=== PATIENT | male | born 1955 | race Caucasian/White ===

== ENCOUNTER 2020-06-27 16:40 | Outpatient (CLI) | payer OTHER, MEDICARE, SELFPAY ==
--- NOTE | ~2020-06-27 | XR_ITS ---
EXAMINATION: XR knee LT 3V DATE: 06/27/2020 17:11 INDICATION: Chronic left knee pain. TECHNIQUE: 4 views of left knee were obtained. COMPARISON: None. FINDINGS: There is varus angulation at the knee. No fracture. There is severe osteoarthritis of media l and patellofemoral compartments and mild osteoarthritis of lateral compartment. There is chondrocal cinosis of lateral meniscus. There is a moderate-sized knee joint effusion with loose bodies. IMPRESSION: 1. Severe left knee osteoarthritis. 2. Moderate-sized left knee joint effusion with loose bodies. Reviewed, dictated and finalized at location A. DULE HANGER
[2020-06-27 17:28] LABS: Basophils Absolute Auto 0.1 K/mm3 (0.0-0.1); Basophils Percent Auto 0.6 % (0.2-1.2); Eosinophils Absolute Auto 0.4 K/mm3 (0-0.3); Eosinophils Percent Auto 5.3 % (0-4.4); Hematocrit 43.6 % (42.0-52.0); Hemoglobin 14.8 g/dL (14.0-18.0); Immature Granulocyte Absolute 0.02 K/mm3 (0.00-0.031); Immature Granulocyte Percent A 0.2 % (0-0.5); Lymphocytes Absolute Auto 2.86 K/mm3 (0.9-3.2); Lymphocytes Percent Auto 34.5 % (18.3-44.2); Mean Corpuscular HGB Conc 33.9 g/dl (32-36); Mean Corpuscular Hemoglobin 31.3 pg (26-34); Mean Corpuscular Volume 92.2 fl (80-100); Mean Platelet Volume 9.8 fl (7.4-10.4); Monocytes Absolute Auto 0.6 K/mm3 (0.1-0.6); Monocytes Percent Auto 6.9 % (2.6-8.5); Neutrophils Absolute Auto 4.4 K/mm3 (1.3-6.7); Neutrophils Percent Auto 52.5 % (45.5-73.1); Platelet Count Result 225 k/mm3 (150-375); Red Blood Count 4.73 M/mm3 (4.6-6.20); Red Cell Distribution Width 12.2 % (11.5-14.5); White Blood Count 8.3 K/mm3 (4.5-10.0)
[2020-06-27 17:31] LABS: Add Urine Microscopic? NO; Appearance Urine Clear (Clear); Bilirubin Urine Negative (Negative); Blood Urine Negative (Negative); Color Urine Straw (Yellow); Glucose Urine UA Negative (Negative); Ketones Urine Negative (Negative); Leukocyte Esterase Ur Negative LEU/UL (NEGATIVE); Nitrate Urine Negative (Negative); Protein Urine Negative (Negative); Specific Grav Ur 1.013 (1.001-1.035); Urobilinogen Urine Negative mg/dL (<2.0)
[2020-06-27 17:41] LABS: Alanine Aminotransferase 50 U/L (4-50); Albumin Level 4.6 g/dL (3.5-5.1); Alkaline Phosphatase 45 U/L (38-126); Anion Gap 7 mmol/L (8-16); Aspartate Amino Transferase 34 U/L (17-59); Bilirubin,Total 0.4 mg/dL (0.2-1.3); Blood Urea Nitrogen 23 mg/dL (9-20); Calcium 9.4 mg/dL (8.4-10.2); Carbon Dioxide 30 mmol/L (22-30); Chloride 104 mmol/L (98-107); Cholesterol 177 mg/dL (0-200); Estimated Glomerular Filt Rate > 60; Glucose 104 mg/dL (75-110); HDL Direct 49 mg/dL; Potassium 4.4 mmol/L (3.4-5.0); Sodium 141 mmol/L (137-145); Triglycerides 132 mg/dL (<150)
[2020-06-27 17:47] LABS: Hemoglobin A1C 5.4 % (<5.7)
[2020-06-27 17:52] LABS: LDL Cholesterol Direct 103 mg/dL
== END 2020-06-27 16:41 | disposition home or self-care (01) ==
LOC: ANHIMG 16:47
PROVIDERS: PCP Family Medicine; Visit Provider Nurse Practitioner Family
DX: R73.01 Impaired fasting glucose (principal); E78.2 Mixed hyperlipidemia; E78.00 Pure hypercholesterolemia, unspecified; Z00.00 Encounter for general adult medical examination without abnormal findings; M25.562 Pain in left knee; M17.12 Unilateral primary osteoarthritis, left knee; M25.462 Effusion, left knee; M23.42 Loose body in knee, left knee
CPT/HCPCS: 36415; 73562; 80053; 80061; 81003; 83036; 84443; 85025

== ENCOUNTER → 2021-01-12 01:39 | Outpatient (CLI) | payer OTHER, MEDICARE, SELFPAY ==
[2021-01-12 19:39] LABS: SARS-CoV-2 RNA PCR Positive
== END ==
PROVIDERS: PCP Family Medicine; Visit Provider Family Medicine
DX: U07.1 COVID-19 (principal)
CPT/HCPCS: C9803; U0003; U0005

== ENCOUNTER 2021-01-25 09:54 | Outpatient (CLI) | payer OTHER, MEDICARE, SELFPAY ==
--- NOTE | ~2021-01-25 | XR_ITS ---
EXAMINATION: XR chest 2V EXAM DATE: 01/25/2021 10:14 INDICATION: R06.02 - Shortness of breath, recent COVID. TECHNIQUE: Frontal and lateral projections of the chest obtained and reviewed. There is no prior anita dy for comparison. FINDINGS: The lungs are clear. There are no pleural effusions. The cardiomediastinal silhouette is within normal limits. There is no pneumothorax suspected. The bones and soft tissues are unremarkab le. IMPRESSION: No acute cardiopulmonary findings. Reviewed, dictated and finalized at location A.
== END 2021-01-25 09:55 | disposition home or self-care (01) ==
PROVIDERS: PCP Family Medicine; Visit Provider Family Medicine
DX: R06.02 Shortness of breath (principal); B94.8 Sequelae of other specified infectious and parasitic diseases
CPT/HCPCS: 71046

== ENCOUNTER 2022-05-21 08:06 | Outpatient (CLI) | payer OTHER, MEDICARE, SELFPAY ==
--- NOTE | 2022-05-22 14:47 | WPDPFTINT ---
PFT Procedure Performed PFT Procedure Performed Spirometry with Pre/Post Bronchodilator Plethysmography (Lung Vol) Diffusing Cap (DLCO) Flow Vol Loop PFT Interpretation Lung volumes were measured with the body plethysmography method. The diminished expiratory reserve volume is related to obesity. The remaining lung volumes are unremarkable. Spirometry showed diminished expiratory flow rates and a diminished FEV1 to FVC ratio 61%, indicative of a obstructive airway disease. Following administration of a bronchodilator there was significant increase in expiratory flow rates. The flow volume loop is consistent with obstructive airway disease. Impression: Mild obstructive airway disease with significant response to bronchodilators on this testing. Lung diffusion capacity within the normal range.
== END 2022-05-21 08:07 | disposition home or self-care (01) ==
LOC: ANHPFT 08:07
PROVIDERS: PCP Family Medicine; Visit Provider Physician Assistant
DX: J44.9 Chronic obstructive pulmonary disease, unspecified (principal); R06.02 Shortness of breath
CPT/HCPCS: 94060; 94726; 94729

== ENCOUNTER 2022-11-21 16:35 | Outpatient (CLI) | payer OTHER, MEDICARE, SELFPAY ==
[2022-11-21 17:20] LABS: Basophils Absolute Auto 0.1 K/mm3 (0.0-0.1); Basophils Percent Auto 0.9 % (0.2-1.2); Eosinophils Absolute Auto 0.4 K/mm3 (0-0.3); Eosinophils Percent Auto 6.9 % (0-4.4); Hematocrit 40.9 % (42.0-52.0); Hemoglobin 13.8 g/dL (14.0-18.0); Immature Granulocyte Absolute 0.02 K/mm3 (0.00-0.031); Immature Granulocyte Percent A 0.3 % (0-0.5); Lymphocytes Absolute Auto 1.57 K/mm3 (0.9-3.2); Lymphocytes Percent Auto 27.1 % (18.3-44.2); Mean Corpuscular HGB Conc 33.7 g/dl (32-36); Mean Corpuscular Volume 91.9 fl (80-100); Mean Platelet Volume 9.9 fl (7.4-10.4); Monocytes Absolute Auto 0.5 K/mm3 (0.1-0.6); Neutrophils Absolute Auto 3.2 K/mm3 (1.3-6.7); Neutrophils Percent Auto 55.8 % (45.5-73.1); Platelet Count Result 220 k/mm3 (150-375); Red Blood Count 4.45 M/mm3 (4.6-6.20); Red Cell Distribution Width 12.3 % (11.5-14.5); White Blood Count 5.8 K/mm3 (4.5-10.0)
[2022-11-21 17:40] LABS: Alanine Aminotransferase 83 U/L (6-50); Albumin Level 4.4 g/dL (3.5-5.1); Alkaline Phosphatase 46 U/L (38-126); Anion Gap 9 mmol/L (8-16); Aspartate Amino Transferase 42 U/L (17-59); Bilirubin,Total 0.5 mg/dL (0.2-1.3); Blood Urea Nitrogen 29 mg/dL (9-20); Calcium 9.4 mg/dL (8.4-10.2); Carbon Dioxide 28 mmol/L (22-30); Chloride 103 mmol/L (98-107); Estimated Glomerular Filt Rate 60; Glucose 111 mg/dL (65-110); Potassium 4.4 mmol/L (3.4-5.0); Sodium 140 mmol/L (137-145)
== END 2022-11-21 16:36 | disposition home or self-care (01) ==
LOC: ANHLAB 16:37
PROVIDERS: PCP Family Medicine; Visit Provider Physician Assistant
DX: K92.1 Melena (principal); R10.9 Unspecified abdominal pain
CPT/HCPCS: 36415; 80053; 85025

== ENCOUNTER 2022-12-20 01:20 | Day surgery (SDC) | payer OTHER, MEDICARE, SELFPAY ==
[2022-12-09 09:36] VITALS: BMI 31.6
--- NOTE | 2022-12-19 15:23 | PM.HPGS ---
History of Present Illness History of Present Illness Consent: Risks, benefits, and alternatives have been discussed and questions answered. Patient agrees to proceed with procedure. Chief complaint: Personal hx of other diseases of the digestive sys Narrative: Jamar Rogers is a 67 year old male referred for Investigation of rectal bleeding. For a period of 12 consecutive days he was seen blood in his stools every day. He has not had abdominal pain or rectal pain. He denies constipation or straining. Review of Systems Review of Systems: All systems reviewed & are unremarkable except as noted in HPI and below PMFSH Surgical History Surgical History S/P prostatectomy Status post left knee replacement Family History Family History Mother Family history of diabetes mellitus in first degree relative Father Family history of lymphoma Other Diabetes mellitus Social History Social History Smoking status: Never smoker Second hand tobacco smoke exposure: No Alcohol intake: current Drinks per week: 5 Substance use: never Substance use type: does not use Living arrangements: with family Occupation/Education: occupation Gender identity (if verbalized by the patient): Male Sexual Orientation (if Verbalized by the Patient): Straight or Heterosexual Spiritual care concerns: No Meds Home Medications and Allergies Home Medications Medication Instructions Recorded Confirmed Type atorvastatin 40 mg tablet See Rx Instructions .Route 09/24/21 12/09/22 Rx .COMPLEX #180 tabs umeclidinium 62.5 mcg-vilanterol See Rx Instructions .Route 07/22/22 12/09/22 Rx 25 mcg/actuation powdr for .COMPLEX #60 ea inhalation (Anoro Ellipta) albuterol sulfate 90 mcg/actuation 1 puff inhalation Q6H PRN 10/28/22 12/09/22 Rx aerosol inhaler shortness of breath or wheezing #8.5 grams diclofenac sodium 50 mg See Rx Instructions .Route 11/18/22 12/09/22 Rx tablet,delayed release .COMPLEX #60 tabs zolpidem 10 mg tablet 10 mg PO .qhs insomnia #30 tabs 12/02/22 12/09/22 Rx Allergies Allergy/AdvReac Type Severity Reaction Status Date / Time No Known Allergies Allergy Verified 12/20/22 08:34 Exam Const: General: alert Orientation/consciousness: patient oriented x3 Resp: Auscultation: clear to auscultation bilaterally Cardio: Rhythm: regular rhythm GI: GI Palp: Yes Soft to palpation and No Tenderness to palpation present (GI) Neuro: General: patient oriented x3 Assessment and Plan Assessment and plan (1) Rectal bleeding: Code(s): K62.5 - Hemorrhage of anus and rectum Status: Acute Assessment and Plan: Colonoscopy with possible biopsy or polypectomy or cautery or injection of substances.
[2022-12-20 08:35] VITALS: BP 129/99; PULSE 70; RESP 20; TEMP 36.2; O2SAT 97
[2022-12-20] MEDS: LACTATED RINGERS 1,000 ML 150 ML IV CONT (08:44)
--- NOTE | 2022-12-20 09:01 | P.PNAN_ITS ---
Anes - Initial Pre Proc Eval Procedure: Operation Date: 12/20/22 09:30 Proposed Procedures p Colonoscopy - Carlos Robles MD Date/Time: 12/20/22 09:01 Surgeon: Carlos Robles MD Pre Op Diagnosis: Personal hx of other diseases of the digestive sys Patient Data Age: 67 Gender: M Height: 1.85 m Weight: 104.8 kg Last Vital Signs Temp 36.2 C L 12/20/22 08:35 Pulse 70 12/20/22 08:35 Resp 20 12/20/22 08:35 BP 129/99 H 12/20/22 08:35 Pulse Ox 97 12/20/22 08:35 O2 Del Method Room Air 12/20/22 08:35 Allergies Allergy/AdvReac Type Severity Reaction Status Date / Time No Known Allergies Allergy Verified 12/20/22 08:34 Home Medications Medication Instructions Recorded Confirmed Type atorvastatin 40 mg tablet See Rx Instructions .Route 09/24/21 12/09/22 Rx .COMPLEX #180 tabs umeclidinium 62.5 mcg-vilanterol See Rx Instructions .Route 07/22/22 12/09/22 Rx 25 mcg/actuation powdr for .COMPLEX #60 ea inhalation (Anoro Ellipta) albuterol sulfate 90 mcg/actuation 1 puff inhalation Q6H PRN 10/28/22 12/09/22 Rx aerosol inhaler shortness of breath or wheezing #8.5 grams diclofenac sodium 50 mg See Rx Instructions .Route 11/18/22 12/09/22 Rx tablet,delayed release .COMPLEX #60 tabs zolpidem 10 mg tablet 10 mg PO .qhs insomnia #30 tabs 12/02/22 12/09/22 Rx Patient hx anesthesia problems: none Family hx anesthesia problems: none Results Review: All pre-operative results and documents have been reviewed as part of the pre- operative evaluation. [facility] Surgical History Surgical History S/P prostatectomy Status post left knee replacement Family History Family History Mother Family history of diabetes mellitus in first degree relative Father Family history of lymphoma Other Diabetes mellitus Social History Social History Smoking status: Never smoker Second hand tobacco smoke exposure: No Alcohol intake: current Drinks per week: 5 Substance use: never Substance use type: does not use Living arrangements: with family Occupation/Education: occupation Gender identity (if verbalized by the patient): Male Sexual Orientation (if Verbalized by the Patient): Straight or Heterosexual Spiritual care concerns: No Anes - Eval Final PreProcedure Day of Procedure 12/20/22 09:01 Patient weight: obese Heart: regular rate and rhythm Lungs: clear to auscultation Airway: Mallampati scale class II Neurological: alert and oriented Last oral intake: >/= 8 hours ASA classification: III Emergent: no Anesthetic plan: proceed Anesthesia type and monitoring: general GIVS and standard monitoring Results Review: All pre-operative results and documents have been reviewed as part of the pre- operative evaluation. Informed Consent: The patient's anesthetic plan and its attendant risks and benefits were discussed with the patient/family/POA. Questions were solicited and answers provided to the satisfaction of the patient/family/POA.
[2022-12-20 09:37] VITALS: BP 110/77; PULSE 63; RESP 17; O2SAT 95
[2022-12-20 09:47] VITALS: BP 118/78; PULSE 63; RESP 23; O2SAT 97
[2022-12-20 09:57] VITALS: BP 114/74; PULSE 68; RESP 18; O2SAT 97
== END 2022-12-20 10:03 | disposition home or self-care (01) ==
PROVIDERS: PCP Family Medicine; Visit Provider Internal Medicine Gastroenterology
PROC: 0DJD8ZZ Inspection of Lower Intestinal Tract, Via Natural or Artificial Opening Endoscopic (ICD-10-PCS; CPT 45378; principal; 2022-12-20 09:30)
DX: K62.5 Hemorrhage of anus and rectum (principal); K57.30 Diverticulosis of large intestine without perforation or abscess without bleeding; K64.8 Other hemorrhoids; Z79.51 Long term (current) use of inhaled steroids; Z87.19 Personal history of other diseases of the digestive system; E66.9 Obesity, unspecified; Z68.30 Body mass index [BMI] 30.0-30.9, adult
CPT/HCPCS: 45378; J2704; J7120

== ENCOUNTER 2023-03-27 15:18 | Outpatient (CLI) | payer OTHER, MEDICARE, SELFPAY ==
--- NOTE | ~2023-03-27 | CT_ITS ---
EXAMINATION: CT abdomen pelvis w con DATE: 03/27/2023 15:53 INDICATION: Left lower quadrant abdominal pain. TECHNIQUE: Computed tomography (CT) of the abdomen and pelvis was performed with 100 mL Omnipaque 350 intravenous contrast. Automated exposure control and iterative reconstruction technique were employe d. The dose-length product was 1110.62 mGy-cm. COMPARISON: None. FINDINGS: The visualized portions of the lung bases demonstrate mild atelectasis. No pleural effusion . The heart size is normal. There are coronary artery calcifications. No pericardial effusion. The li gustavo, gallbladder, spleen, pancreas, and adrenal glands are normal. There are cysts in the kidneys manjit suring up to 4.5 cm on the right. Aortic atherosclerosis is noted. There is diverticulosis of the col on without evidence of diverticulitis. The appendix is normal. There is fat stranding on the left, la teral to the bladder. There are no pathologically enlarged lymph nodes. There is no free intraperiton eal fluid. There is a supraumbilical ventral hernia containing fat. There is moderate thoracic spondy losis and severe lumbar spondylosis. IMPRESSION: 1. Fat stranding in left pelvis, likely inflammation and fat necrosis. Reviewed, dictated and finalized at location A. FLOOR REFINISHER
[2023-03-27 15:48] LABS: Estimated Glomerular Filt Rate 50
== END 2023-03-27 15:19 | disposition home or self-care (01) ==
LOC: ANHIMG 15:22
PROVIDERS: PCP Family Medicine; Visit Provider Physician Assistant Medical
DX: R10.32 Left lower quadrant pain (principal)
CPT/HCPCS: 74177; Q9967

== ENCOUNTER 2023-09-15 12:13 | Outpatient (CLI) | payer OTHER, MEDICARE, SELFPAY ==
--- NOTE | ~2023-09-15 | MMUS_ITS ---
EXAMINATION: MM diagnostic marilin BI w herb, US breast BI complete HISTORY: Breast tenderness. TECHNIQUE: Additional 3-D tomosynthesis images of the breasts were performed and synthetic 2-D images were generated. CAD analysis was submitted and interpreted. High resolution bilateral complete breas t ultrasound was performed. COMPARISON: None BREAST PARENCHYMAL COMPOSITION: Not dense: There are scattered areas of fibroglandular density. FINDINGS: MAMMOGRAPHIC FINDINGS: There is bilateral gynecomastia. There are no suspicious masses, calcifications or architectural dist ortion to suggest malignancy. ULTRASOUND: Complete bilateral US of all 4 quadrants of the breasts and retroareolar region was reviewed. Normal heterogeneous echotexture without focal solid or cystic mass. IMPRESSION: 1. No evidence for malignancy in either breast. Gynecomastia. 2. Recommend follow-up clinical management for gynecomastia. BI-RADS Category 2: Benign finding(s). Reviewed, dictated and finalized at location A. IMPRESSION: 1. No evidence for malignancy in either breast. Gynecomastia. 2. Recommend follow-up clinical management for gynecomastia. BI-RADS Category 2: Benign finding(s).
== END 2023-09-15 12:14 | disposition home or self-care (01) ==
PROVIDERS: PCP Family Medicine; Visit Provider Physician Assistant
DX: N62 Hypertrophy of breast (principal); N63.10 Unspecified lump in the right breast, unspecified quadrant; N63.20 Unspecified lump in the left breast, unspecified quadrant
CPT/HCPCS: 76641; 77062; 77066; G0279

== ENCOUNTER 2024-06-02 09:49 | Outpatient (CLI) | payer OTHER, MEDICARE, SELFPAY ==
--- NOTE | ~2024-06-02 | XR_ITS ---
EXAMINATION: XR chest 2V DATE: 06/02/2024 10:06 INDICATION: Cough, unspecified. TECHNIQUE: Frontal and lateral views of the chest were obtained. COMPARISON: Chest 2 views 01/25/2021 FINDINGS: There is no pneumonia, pleural effusion, or pneumothorax. The heart size is normal. IMPRESSION: 1. No acute cardiopulmonary disease. Reviewed, dictated and finalized at location A. LE SCHOOL ASSISTANT PRINCIPAL
== END 2024-06-02 09:50 | disposition home or self-care (01) ==
LOC: MICIMG 09:53
PROVIDERS: PCP Family Medicine; Visit Provider Student in an Organized Health Care Education/Training Program
DX: R05.9 Cough, unspecified (principal)
CPT/HCPCS: 71046

== ENCOUNTER 2024-07-07 15:17 | Outpatient (CLI) | payer OTHER, MEDICARE, SELFPAY ==
[2024-07-07 16:09] LABS: Basophils Percent Auto 0.5 % (0.2-1.2); Eosinophils Absolute Auto 0.3 K/mm3 (0-0.3); Eosinophils Percent Auto 5.2 % (0-4.4); Hemoglobin 14.1 g/dL (14.0-18.0); Immature Granulocyte Absolute 0.02 K/mm3 (0.00-0.031); Immature Granulocyte Percent A 0.3 % (0-0.5); Lymphocytes Absolute Auto 1.71 K/mm3 (0.9-3.2); Lymphocytes Percent Auto 26.8 % (18.3-44.2); Mean Corpuscular HGB Conc 34.4 g/dl (32-36); Mean Corpuscular Hemoglobin 31.3 pg (26-34); Mean Corpuscular Volume 91.1 fl (80-100); Mean Platelet Volume 9.8 fl (7.4-10.4); Monocytes Absolute Auto 0.7 K/mm3 (0.1-0.6); Neutrophils Absolute Auto 3.6 K/mm3 (1.3-6.7); Neutrophils Percent Auto 56.2 % (45.5-73.1); Platelet Count Result 217 k/mm3 (150-375); Red Cell Distribution Width 12.4 % (11.5-14.5); White Blood Count 6.4 K/mm3 (4.5-10.0)
--- OUTSIDE RECORDS SUMMARY | 2024-07-07 17:19 | XMS_ITS | Clinical Summary ---
Author Organization [facility] Address [address] [place] [address] Care Team Providers Care Airways Control Specialist Name Role Phone Unavailable Primary Care Provider Unavailabl e Social History Tobacco Use Types Packs/Day Years Used Date Smoking Tobacco: Never Assessed Sex and Gender Information Value Date Recorded Sex Assigned at Not on file Legal Sex Male 4:53 PM CDT Gender Identity Not on file Sexual Orientation Not on file Plan of Treatment Health Maintenance Due Date Last Done Comments Colorectal Cancer Screening Colonoscopy (10 Years) 1955 Hepatitis C 10/01/1971 DTaP, Tdap and Td Vaccines ( 1 - Tdap) 1972 Zoster Vaccines (1 of 2) 10/01/2003 Pneumococcal Vaccine: 65+ Ye ars (1 of 1 - PCV) 2018 COVID-19 Vaccine ( - 2023-2 5 season) 2023 Influenza Adult (#1) 2024 RSV Immunization or 60+ Years (1 - 1-dose 75+ series) 2028 Meningococcal B Vaccine Aged Out No l onger eligible based on patient's age to complete this topic Meningococcal Vaccine Aged Out No melba sridevi eligible based on patient's age to complete this topic RSV Immunizations Under 20 Months Aged Out No longer eligible based on patient's age to complete this topic
== END 2024-07-07 15:18 | disposition home or self-care (01) ==
LOC: ANHLAB 15:18
PROVIDERS: PCP Family Medicine; Visit Provider Physician Assistant
DX: J44.9 Chronic obstructive pulmonary disease, unspecified (principal); R05.8 Other specified cough; Z57.39 Occupational exposure to other air contaminants
CPT/HCPCS: 36415; 85025; 86606

== ENCOUNTER 2024-07-30 14:48 | Outpatient (CLI) | payer OTHER, MEDICARE, SELFPAY ==
--- NOTE | ~2024-07-30 | CT_ITS ---
CT Scan of the Chest without Contrast: Clinical Indication: COPD Technique: Contiguous sections were acquired throughout the chest without intravenous contrast. Dose reduction technique was used on this scan by utilizing automated exposure control and iterative recon struction technique. The dose-length product (DLP) was 508.00 mGy-cm. Findings: There is no evidence of any significant mediastinal, hilar or axillary lymphadenopathy. Coronary glo ry calcification present. There is no evidence of pleural or pericardial effusion. The lungs are clear. No pulmonary nodules or infiltrates are noted. Images through the upper abdomen reveal no abnormalities. Impression: No significant abnormalities seen. Reviewed, dictated and finalized at location . Impression: No significant abnormalities seen.
--- OUTSIDE RECORDS SUMMARY | 2024-07-30 14:54 | XMS_ITS | Encounter Summary ---
Author Organization [facility] Address [address] [place] [address] Care Team Providers Care Bonded Structures Repairer Name Role Phone Enrrique Laura MD Primary Care Provider Arturo Lutz MD Unavailable [phone] Rebecca Templeton MD Unavailable Encounter Details Date Type Department Care Team (Late st Contact Info) Description 04/25/2021 Telephone [facility] Radiology [address] [place] [address] [place] [address] [place] [address] Social History Tobacco Use Types Packs/Day Years Used Date Smoking Tobacco: Never Smokeless Tobacco: Never Alcohol Use Standard Drinks/Week Comments Yes 0 (1 standard drink = 0.6 oz pur e alcohol) 1-2 beers a day AUDIT-C Answer Date Recorded Q1: How often do you have a drink containing alc ohol? 2-3 times a week 09/12/2020 Q2: How many drinks containi ng alcohol do you have on a typical day when you are drinking? 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[employer] Gender Identity Male 08/08/2020 7:20 PM CDT Sexual Orientation Straight 08/08/2020 7: 20 PM CDT documented as of this encounter Plan of Treatment Not on file documented as of this encounter Visit Diagnoses Not on filedocumented in this encounter Care Teams Bonded Structures Repairer Relationship Specialty Start Date End Date Enrrique Laura MD [id number] [place] [address] PCP - General 12/24/17 [place] [address] [facility] [address] [place] [address] Consulting Physician General Surgery 06/21/21 Rebecca Templeton MD [address] [place] [id number] Consulting Physician General Surgery 04/03/23 documented as of this encounter
--- OUTSIDE RECORDS SUMMARY | 2024-07-30 14:54 | XMS_ITS | Clinical Summary ---
Author Organization [facility] Address [address] [place] [address] Care Team Providers Care Manager Care Name Role Phone Unavailable Primary Care Provider [...]
--- OUTSIDE RECORDS SUMMARY | 2024-07-30 14:54 | XMS_ITS | Clinical Summary ---
Author Organization [facility] Address [address] [place] [address] Care Team Providers Care Cab Starter Name Role Phone Enrrique Laura MD Primary Care Provider Arturo Lutz MD Unavailable [phone] Rebecca Templeton MD Unavailable Allergies No known active allergies Medications zolpidem (AMBIEN) 10 mg tablet Take 1 tablet (10 mg total) by mouth nightly as needed for sleep Active atorvastatin (LIPITOR) 10 mg tablet Take 4 tablets (40 mg total) by mouth nightly Active acetaminophen 500 mg capsule Take 2 capsules (1,000 mg total) by mouth every 6 (six) hours 30 tablet 2 Active albuterol HFA (PROVENTIL HFA,VENTOLIN HFA,PROAIR HFA) 90 mcg/actuation inhaler INHALE 1 PUFF BY MOUTH EVERY 6 HOURS NEEDED FOR SHORTNESS OF BREATH OR WHEEZING 3 Active cholecalciferol (VITAMIN D-3) 25 mcg (1,000 unit) tablet Take 1 tablet (1,000 Units total) by mouth daily 1 Active Anoro Ellipta 62.5-25 mcg/actuation blister with device 1 puff daily [address] (VOLTAREN) 50 mg EC tabletIndicatio ns:Osteoarthrit is Take 1 tablet (50 mg total) by mouth 2 (two) times a day as needed for pain 3 Active Active Problems Problem Noted Date Diagnosed Date Peripheral polyneuropathy 04/03/2023 Prediabetes 04/03/2023 Overview (04/03/2023): Hgb A1c 5.8% on 04/01/23 Cellulitis of great toe of left foot 04/03/2023 Callus of toe 04/03/2023 Open wound of left great toe 04/03/2023 Overview (04/03/2023): Cracked callus plantar surface at IP joint Antibiotic-associated diarrhea 04/03/2023 Denervation atrophy of muscle 04/03/2023 Iron deficiency anemia 04/03/2023 Hyponatremia 03/31/2023 Sigmoid diverticulitis 03/29/2023 Assessment & Plan (03/29/2023 10:40 PM FARM LOAN INSPECTOR): Recurrent history of diverticulitis of 5 years' duration Presents with reports of abdominal pain an outpatient diagnosis of diverticulitis Failed outpatient antibiotics, symptoms appears to be worsening. CT abdomen pelvis noted acute sigmoid diverticulitis Status post Zosyn in the ED Continue with IV Zosyn Monitor creatinine daily for renal toxicity Advance diet as tolerated FELICITA (acute kidney injury) 03/29/2023 Assessment & Plan (03/29/2023 10:41 PM FARM LOAN INSPECTOR): Likely prerenal Current creatinine of 1.3, less than 1 at baseline Avoid nephrotoxins Renally dose medications Monitor for renal toxicity in the setting of IV antibiotics. History of prostate cancer 05/10/2021 Overview (05/10/2021): Added automatically from request for surgery [id number] Assessment & Plan (03/29/2023 10:37 PM FARM LOAN INSPECTOR): Status post surgery and radiation Currently remission Supportive care Orthopedic aftercare 10/12/2020 HLD (hyperlipidemia) 09/11/2020 Assessment & Plan (03/29/2023 10:37 PM FARM LOAN INSPECTOR): Chronic and stable Continue home regimen of atorvastatin. Vitamin D deficiency 09/11/2020 Primary osteoarthritis of left knee 08/17/2020 Overview (08/17/2020): Added automatically from request for surgery [id number] Osteoarthritis of knee 12/04/2011 Knee pain 11/12/2011 Transient cerebral ischemic attack 04/04/2010 Resolved Problems Problem Noted Date Diagnosed Date Resolved Date Tinea pedis of left foot 04/03/202310/2022 Overview (04/03/2023): Due to lymphedema causing toes to contact each other and ball of foot with maceration noted 04/03/23 Immunizations Immunization Administration Dates Next Due Influenza, Quadrivalent, Hig h Dose, Preservative Free, Intrr 03/06/2020 Surgical History Surgery Date Site/Laterality Comments KNEE ARTHROSCOPY Arthroscopy knee KNEE ARTHROSCOPY SHOULDER ARTHROSCOPY 2002 SHOULDER SURGERY cut clavicle COLONOSCOPY CATARACT EXTRACTION, BILATERAL Medical History Medical History Date Comments Hepatitis B virus infection Hepa titis B; Comments: DNM 03/09/2014 - Arthritis Peripheral neuropathy Awareness under anesthesia Family History Medical History Relation Name Comments Cancer Father Diabetes Mother Cancer Other 1 Cancer, unknown ; Diabetes type II Other 2 Diabetes me llitus type 2; Lung disease Sister Anesthesia problems Neg Hx Relation Name Status Comments Father Mother Other 1 Other 2 Sister Social History Tobacco Use Types Packs/Day Years Used Date Smoking Tobacco: Never Smokeless Tobacco: Never Alcohol Use Standard Drinks/Week Comments Yes 0 (1 standard drink = 0.6 oz pur e alcohol) 1-2 beers a day [facility] Utilities Answer Date Recorded In the past 12 months has [employer] electric, gas, oil, or water [employer] threatened to shut off services in your home? No 03/31/2023 Social Connection and Isolat ion Panel [NHANES] Answer Date Recorded In a typical week, how many times do you talk on the phone with family, friends, or neighbors? More than three times a week 03/31/2023 How often do you get togethe r with friends or relatives? Three times a week 03/31/2023 How often do you attend chur ch or mandaeism services? Never 03/31/2023 Do you belong to any clubs o r organizations such as taoism groups, unions, fraternal or athletic groups, or school groups? Yes 03/31/2023 How often do you attend meet ings of the clubs or organizations you belong to? Never 03/31/2023 Are you , , di vorced, , never , or living with a partner? 03/31/2023 AUDIT-C Answer Date Recorded Q1: How often do you have a drink containing alc ohol? 2-3 times a week 06/12/2021 Q2: How many drinks containi ng alcohol do you have on a typical day when you are drinking? 3 or 4 06/12/2021 Q3: How often do you have si x or more drinks on one occasion? Less than monthly 06/12/2021 Overall Financial Resource Strain (CARDIA) Answe r Date Recorded How hard is it for you to pa y for the very basics like food, housing, medical care, and heating? Not hard at all 03/31/2023 Hunger Vital Sign Answer Date Recorded Within the past 12 months, y ou worried that your food would run out before you got the money to buy more. Never true 03/31/20 23 Within the past 12 months, t he food you bought just didn't last and you didn't have money to get more. Never true 03/31/2023 PRAPARE - Transportation Answer Date Re corded In the past 12 months, has l ack of transportation kept you from medical appointments or from getting medications? No 07/2022 In the past 12 months, has l ack of transportation kept you from meetings, work, or from getting things needed for daily living? No 03/31/2023 Housing Stability Vital Sign Answer Luca e Recorded In the last 12 months, was t here a time when you were not able to pay the mortgage or rent on time? No 03/31/2023 In the last 12 months, how many places have you lived? 1 03/31/2023 In the last 12 months, was t here a time when you did not have a steady place to sleep or slept in a custodial (including now)? No 03/31/2023 Personal Safety Answer Date Recorded Have you ever been in or are you currently in a harmful physical or emotional relationship or is someone making you feel afraid or unsafe? Denies 03/29/2023 Sex and Gender Information Value Date Recorded Sex Assigned at Not on file Legal Sex Male 12:37 PM FARM LOAN INSPECTOR Gender Identity Male 08/08/2020 7:20 PM CDT Sexual Orientation Straight 08/08/2020 7: 20 PM CDT Obstetrics History Last Filed Vital Signs Vital Sign Reading Time Taken Comments Blood Pressure 119/67 04/03/2023 4:10 PM FARM LOAN INSPECTOR Pulse 66 04/03/2023 4:10 PM FARM LOAN INSPECTOR Temperature 37 C (98.6 F) 04/03/2023 4:10 PM FARM LOAN INSPECTOR Respiratory Rate 18 04/03/2023 4:10 PM FARM LOAN INSPECTOR Oxygen Saturation 97% 04/03/2023 4:10 PM FARM LOAN INSPECTOR Inhaled Oxygen Concentration - - Weight 107 kg (235 lb 14.3 oz) 04/02/2023 7:38 A M FARM LOAN INSPECTOR Height 185.4 cm (6' 1 ) 04/02/2023 7:38 AM FARM LOAN INSPECTOR Body Mass Index 31.12 04/02/2023 7:38 AM FARM LOAN INSPECTOR Plan of Treatment Health Maintenance Due Date Last Done Comments Colon Cancer Screening-Colonoscopy 1955 Depression Screening 1955 Hepatitis C Screening 1955 DTaP/Tdap/Td Vaccine (1 - Tdap) 1964 Hepatitis B Screening 10/01/1971 Pneumococcal vaccine 65+ (1 of 1 - PCV) 10/01/2003 Zoster Vaccine (1 of 2) 10/01/2003 Well Visit 65+ 2018 Covid-19 Vaccine (2 - season) 2023 Influenza Vaccine (#1) 2023 12/29/2020, 2019 Fall Risk Assessment 04/02/2024 04/02/2023 Abdominal Aortic Aneurysm (AAA) Screen Completed , 10/21/2017 Medical Devices Implanted Type Area Technology Strategist Device Identifier Shelf Expiration Date Model / Serial / Lot Depuy Orthopaedics Inc [id number] Attune 7mm Cruciate Retaining Rotate Platform Knee 8 Insert - [id number] Implanted:Qty: 1 on 09/12/2020 by Luther Winston MD at [facility] Left: Knee Depuy [employer] [id number] 02/25/2025 [id number] / / [id number] Depuy [employer] [id number] Attune Cementless Rotate Platform Knee 9 Baseplate Tibial - [id number] Implanted:Qty: 1 on 09/12/2020 by Luther Winston MD at [facility] Left: Knee [employer]uy [employer] [id number] 06/25/2030 [id number] / / [id number] Depuy [employer] [id number] Attune Cruciate Retain Cementless Knee Left 8 Component Femoral - [id number] Implanted:Qty: 1 on 09/12/2020 by Luther Winston MD at [facility] Left: Knee [employer]uy [employer] [id number] 03/27/2030 [id number] / / [id number] Procedures Procedure Name Priority Date/Time Associated Diagnosis Comments CT ABDOMEN PELVIS W CONTRAST ED 03/29/2023 8:49 PM FARM LOAN INSPECTOR from Last 3 Months or Most Recently Relevant to Health Maintenance Results * CT Abdomen Pelvis W Contrast (03/29/2023 8:49 PM FARM LOAN INSPECTOR) Anatomical Region Laterality Modality Body N/A Computed Tomogra phy 03/29/2023 8:54 PM FARM LOAN INSPECTOR Narrative 03/29/2023 9:32 PM FARM LOAN INSPECTOR EXAM DESCRIPTION: CT ABDOMEN PELVIS W CONTRAST REASON FOR STUDY: Abdominal pain, acute, nonlocalized, hx of diverticulitis Abdominal pain w/ N/V X 1 week; Hx of diverticulitis; Patient became sick with contrast administration, scan ran at 4:40min instead of 1:10min TECHNIQUE: CT scan of the abdomen and pelvis performed with intravenous and without oral contrast using helical scanning technique with dynamic intravenous contrast injection. Reconstructed coronal and sagittal MPR images reviewed. All images stored on PACS. Automated exposure control was used as a dose optimization technique for this examination. CONTRAST TYPE/DOSE: 100mL of IOVERSOL 350 MG IODINE/ML INTRAVENOUS SYRINGE injected via intravenous COMPARISON: 10/21/2017 REFERENCE: Per ACR white paper recommendations, unless otherwise specified no follow-up imaging is recommended for incidental renal and adrenal lesions per consensus recommendations based on imaging criteria. Further lab evaluation could be pursued based on clinical findings. FINDINGS: LOWER CHEST: No significant pulmonary abnormalities. No effusion. Small hiatal hernia. LIVER: Decreased attenuation as seen with fibrofatty changes. GALLBLADDER: No stones identified. No wall thickening or inflammatory changes. BILE DUCTS: No intrahepatic or extrahepatic ductal dilatation. SPLEEN: Normal size. No focal lesions. PANCREAS: No identified cystic or solid masses. No significant calcifications. No adjacent inflammation or peripancreatic fluid collections. Pancreatic duct not dilated. ADRENALS: Normal. KIDNEYS/URINARY TRACT: Bilateral renal cysts. No visualized stones. No hydronephrosis or hydroureter. Symmetric enhancement. Urinary bladder is unremarkable. GI: There is diverticulosis predominantly involving the descending and sigmoid colon. There is thickening of the wall of the proximal and mid sigmoid colon with luminal narrowing and inflammatory stranding in the surrounding fat characteristic of sigmoid diverticulitis. No bowel obstruction or abscess. Normal appendix. PERITONEUM: No ascites or free air. RETROPERITONEUM: No mass or adenopathy. REPRODUCTIVE: No significant abnormality. VASCULATURE: No abdominal aortic aneurysm. MUSCULOSKELETAL: Multilevel degenerative changes are present without fracture. No concerning lesions are present. Degenerative grade 1 anterolisthesis L4 on L5. OTHER: Small periumbilical hernia containing only fat. IMPRESSION: Sigmoid diverticulitis. No evidence of bowel obstruction or abscess. Fatty infiltration of the liver. Small hiatal hernia. Bilateral renal cysts. Small periumbilical hernia containing only fat. THIS IS AN ELECTRONICALLY VERIFIED FINAL REPORT 03/29/2023 9:32 PM - Electronically signed by Mau Kellogg M.D. KT: KT Report ID: [id number] Reading Location: [place] [address] Procedure Note Mau Kellogg MD - 03/29/2023 EXAM DESCRIPTION: CT ABDOMEN PELVIS W CONTRAST REASON FOR STUDY: Abdominal pain, acute, nonlocalized, hx ofdiverticulitis Abdominal pain w/ N/V X 1 week; Hx of diverticulitis; Patient becamesick with contrast administration, scan ran at 4:40min instead of 1:10min TECHNIQUE: CT scan of the abdomen and pelvis performed with intravenousand without oral contrast using helical scanning technique with dynamic intravenous contrast injection. Reconstructed coronal and sagittal MPRimages reviewed. All images stored on PACS. Automated exposure control was usedas a dose optimization technique for this examination. CONTRAST TYPE/DOSE: 100mL of IOVERSOL 350 MG IODINE/ML INTRAVENOUSSYRINGE injected via intravenous COMPARISON: 10/21/2017 REFERENCE: Per ACR white paper recommendations, unless otherwise specifiedno follow-up imaging is recommended for incidental renal and adrenal lesionsper consensus recommendations based on imaging criteria. Further labevaluation could be pursued based on clinical findings. FINDINGS: LOWER CHEST: No significant pulmonary abnormalities. Noeffusion. Small hiatal hernia. LIVER: Decreased attenuation as seen with fibrofatty changes. GALLBLADDER: No stones identified. No wall thickening or inflammatory changes. BILE DUCTS: No intrahepatic or extrahepatic ductal dilatation. SPLEEN: Normal size. No focal lesions. PANCREAS: No identified cystic or solid masses. No significant calcifications. No adjacent inflammation or peripancreatic fluidcollections. Pancreatic duct not dilated. ADRENALS: Normal. KIDNEYS/URINARY TRACT: Bilateral renal cysts. No visualized stones. No hydronephrosis or hydroureter. Symmetric enhancement. Urinary bladderis unremarkable. GI: There is diverticulosis predominantly involving the descending and sigmoid colon. There is thickening of the wall of the proximal and mid sigmoid colon with luminal narrowing and inflammatory stranding in the surrounding fat characteristic of sigmoid diverticulitis. No bowel obstruction or abscess. Normal appendix. PERITONEUM: No ascites or free air. RETROPERITONEUM: No mass or adenopathy. REPRODUCTIVE: No significant abnormality. VASCULATURE: No abdominal aortic aneurysm. MUSCULOSKELETAL: Multilevel degenerative changes are present without fracture. No concerning lesions are present. Degenerative grade 1 anterolisthesis L4 on L5. OTHER: Small periumbilical hernia containing only fat. IMPRESSION: Sigmoid diverticulitis. No evidence of bowel obstruction or abscess. Fatty infiltration of the liver. Small hiatal hernia. Bilateral renal cysts. Small periumbilical hernia containing only fat. THIS IS AN ELECTRONICALLY VERIFIED FINAL REPORT 03/29/2023 9:32 PM - Electronically signed by Mau Kellogg M.D. KT: CHARISSA Report ID: [id number] Reading Location: [place] [address] Ziggy Scott DO IMG CT PROCEDURES Final Result from Last 3 Months or Most Recently Relevant to Health Maintenance Insurance [facility] CLAIMS [facility] CHOICE PLUS MEDICARE [facility] CHOICE PLUS [place] [id number] MEDICARE FOR LIFE [facility] CHOICE PLUS MEDICARE [facility] FOR LIFE Advance Directives For more information, please contact: [phone] Documents on File Type Date Recorded Patient Fitness Professional Expl anation Advance Directives and Livin g Will 07/08/2021 9:06 AM * Full Code (Latest Code Status on File) Date Activated Date Inactivated Comments 03/29/2023 11:20 PM 04/03/2023 9:18 PM * Full Code Date Activated Date Inactivated Comments 06/20/2021 1:45 PM 06/21/2021 7:23 PM * Full Code Date Activated Date Inactivated Comments 09/12/2020 9:35 AM 09/12/2020 5:46 PM Care Teams Cab Starter Relationship Specialty Start Date End Date Enrrique Laura MD [address] [facility] [address] [place] [address] PCP - General 12/24/17 [place] [address] [address] [facility] [address] [place] [address] Consulting Physician General Surgery 06/21/21 Rebecca Templeton MD [address] [facility] [address] [place] [address] Consulting Physician General Surgery 04/03/23
--- OUTSIDE RECORDS SUMMARY | 2024-07-30 14:54 | XMS_ITS | Referral Summary ---
Author Organization [facility] Address [address] [place] [address] Care Team Providers Care Automotive General Manager Name Role Phone Enrrique Laura MD Primary Care Provider Arturo Lutz MD Unavailable [phone] Rebecca Templeton MD Unavailable Allergies No known [...] 03/29/2023 Assessment & Plan (03/29/2023 10:40 PM MILL OILER): Recurrent history of diverticulitis of 5 years' [...] 03/29/2023 Assessment & Plan (03/29/2023 10:41 PM MILL OILER): Likely prerenal Current creatinine of 1.3, less than 1 at baseline Avoid nephrotoxins Renally dose medications Monitor for renal toxicity in the setting of IV antibiotics. History of prostate cancer 05/10/2021 Overview (05/10/2021): Added automatically from request for surgery [id number] Assessment & Plan (03/29/2023 10:37 PM MILL OILER): Status post surgery and radiation Currently remission Supportive care Orthopedic aftercare 10/12/2020 HLD (hyperlipidemia) 09/11/2020 Assessment & Plan (03/29/2023 10:37 PM MILL OILER): Chronic and stable Continue home regimen of atorvastatin. Vitamin D deficiency 09/11/2020 Primary osteoarthritis of left knee 08/17/2020 Overview (08/17/2020): Added automatically from request for surgery [id number] Osteoarthritis of knee 12/04/2011 Knee pain 11/12/2011 Transient cerebral ischemic attack 04/04/2010 Resolved Problems Problem Noted Date Diagnosed Date Resolved Date Tinea pedis of left foot 04/03/202310/2022 Overview (04/03/2023): Due to lymphedema causing toes to contact each other and ball of foot with maceration noted 04/03/23 Immunizations Immunization Administration Dates Next Due Influenza, Quadrivalent, Hig h Dose, Preservative Free, Intrr 03/06/2020 Social History Tobacco Use Types Packs/Day Years Used Date Smoking Tobacco: Never Smokeless Tobacco: Never Alcohol Use Standard Drinks/Week Comments Yes 0 (1 standard drink = 0.6 oz pur e alcohol) 1-2 beers a day [facility] Utilities Answer Date Recorded In the past 12 months has [employer], gas, oil, or water [employer] threatened to shut off services in your [...] often do you attend chur ch or taoism services? Never 03/31/2023 Do you belong to any clubs o r organizations such as mormonism groups, unions, fraternal or athletic groups, or [...] on file Legal Sex Male 12:37 PM MILL OILER Gender Identity Male 08/08/2020 7:20 PM CDT Sexual Orientation Straight 08/08/2020 7: 20 PM CDT Last Filed Vital Signs Vital Sign Reading Time Taken Comments Blood Pressure 119/67 04/03/2023 4:10 PM MILL OILER Pulse 66 04/03/2023 4:10 PM MILL OILER Temperature 37 C (98.6 F) 04/03/2023 4:10 PM MILL OILER Respiratory Rate 18 04/03/2023 4:10 PM MILL OILER Oxygen Saturation 97% 04/03/2023 4:10 PM MILL OILER Inhaled Oxygen Concentration - - Weight 107 kg (235 lb 14.3 oz) 04/02/2023 7:38 A M MILL OILER Height 185.4 cm (6' 1 ) 04/02/2023 7:38 AM MILL OILER Body Mass Index 31.12 04/02/2023 7:38 AM MILL OILER Plan of Treatment Not on file Medical Devices Implanted Type Area Line Worker Device Identifier Shelf Expiration Date Model / Serial / Lot Depuy Orthopaedics Inc [id number] Attune 7mm Cruciate Retaining Rotate Platform Knee 8 Insert - [id number] Implanted:Qty: 1 on 09/12/2020 by Luther Winston MD at [facility] Left: Knee [employer]uy [employer] [id number] 02/25/2025 [id number] / / [id number] Depuy [employer] [id number] Attune Cementless Rotate Platform Knee 9 Baseplate Tibial - [id number] Implanted:Qty: 1 on 09/12/2020 by Luther Winsotn MD at [facility] Left: Knee [employer]uy [employer] [id number] 06/25/2030 [id number] / / [id number] Dep[employer] [id number] Attune Cruciate Retain Cementless Knee Left 8 Component Femoral - [id number] Implanted:Qty: 1 on 09/12/2020 by Luther Winston MD at [facility] Left: Knee [employer]uy [employer] [id number] 03/27/2030 [id number] / / [id number] Procedures Procedure Name Priority Date/Time Associated Diagnosis Comments CT ABDOMEN PELVIS W CONTRAST ED 03/29/2023 8:49 PM MILL OILER from Last 3 Months or Most Recently Relevant to Health Maintenance Results * CT Abdomen Pelvis W Contrast (03/29/2023 8:49 PM MILL OILER) Anatomical Region Laterality Modality Body N/A Computed Tomogra phy 03/29/2023 8:54 PM MILL OILER Narrative 03/29/2023 9:32 PM MILL OILER EXAM DESCRIPTION: CT ABDOMEN PELVIS W CONTRAST [...] Mau Kellogg M.D. KT: CHARISSA Report ID: [id number] Reading Location: [id number] Procedure Note Mau Kellogg MD - 03/29/2023 [...] Mau Kellogg M.D. KT: KT Report ID: [id number] Reading Location: [place] [address] Ziggy Scott DO IMG CT PROCEDURES Final Result from Last 3 Months or Most Recently Relevant to Health Maintenance Insurance [facility] CLAIMS [facility] CHOICE PLUS MEDICARE [facility] CHOICE PLUS MEDICARE FOR LIFE [facility] CHOICE PLUS MEDICARE [facility] Address: [address] [address] [place] [address] FOR LIFE Advance Directives For more information, please contact: [phone] Documents on File Type Date Recorded Patient Truck Railroad And Bus Motor Mechanic Expl anation Advance Directives and Livin g Will 07/08/2021 9:06 AM * Full Code (Latest Code Status on File) Date Activated Date Inactivated Comments 03/29/2023 11:20 PM 04/03/2023 9:18 PM * Full Code Date Activated Date Inactivated Comments 06/20/2021 1:45 PM 06/21/2021 7:23 PM * Full Code Date Activated Date Inactivated Comments 09/12/2020 9:35 AM 09/12/2020 5:46 PM Care Teams Automotive General Manager Relationship Specialty Start Date End Date Enrrique Laura MD [address] [place] [address] PCP - General 12/24/17 [place] [address] [address] Consulting Physician General Surgery 06/21/21 Rebecca Templeton MD [address] [place] [address] Consulting Physician General Surgery 04/03/23
== END 2024-07-30 14:49 | disposition home or self-care (01) ==
PROVIDERS: PCP Family Medicine; Visit Provider Physician Assistant
DX: J44.9 Chronic obstructive pulmonary disease, unspecified (principal); Z57.39 Occupational exposure to other air contaminants; R05.8 Other specified cough
CPT/HCPCS: 71250

== ENCOUNTER 2024-08-04 08:11 | Outpatient (CLI) | payer OTHER, MEDICARE, SELFPAY ==
--- OUTSIDE RECORDS SUMMARY | 2024-08-04 08:21 | XMS_ITS | Clinical Summary ---
Author Organization [facility] Address [address] [place] [address] Care Team Providers Care Crusher Tender Name Role Phone Unavailable Primary Care Provider [...] Vaccine ( - 2023-2 5 season) 2023 RSV Immunization or 60+ Years (1 - [...]
--- OUTSIDE RECORDS SUMMARY | 2024-08-04 08:21 | XMS_ITS | Clinical Summary ---
Author Organization [facility] Address [address] [place] [address] Care Team Providers Care Manager Regional Sales Name Role Phone Enrrique Laura MD Primary Care Provider Arturo Lutz MD Unavailable [phone] Rebecca Templeton MD Unavailable Allergies No known [...] 03/29/2023 Assessment & Plan (03/29/2023 10:40 PM SERVICES HOST): Recurrent history of diverticulitis of 5 years' [...] 03/29/2023 Assessment & Plan (03/29/2023 10:41 PM SERVICES HOST): Likely prerenal Current creatinine of 1.3, less than 1 at baseline Avoid nephrotoxins Renally dose medications Monitor for renal toxicity in the setting of IV antibiotics. History of prostate cancer 05/10/2021 Overview (05/10/2021): Added automatically from request for surgery [id number] Assessment & Plan (03/29/2023 10:37 PM SERVICES HOST): Status post surgery and radiation Currently remission Supportive care Orthopedic aftercare 10/12/2020 HLD (hyperlipidemia) 09/11/2020 Assessment & Plan (03/29/2023 10:37 PM SERVICES HOST): Chronic and stable Continue home regimen of atorvastatin. Vitamin D deficiency 09/11/2020 Primary osteoarthritis of left knee 08/17/2020 Overview (08/17/2020): Added automatically from request for surgery [id number] Osteoarthritis of knee 12/04/2011 Knee pain 11/12/2011 [...] pur e alcohol) 1-2 beers a day [facility] Utilities Answer Date Recorded In the past 12 months has [employer], gas, oil, or water [email or web address] threatened to shut off services in your [...] often do you attend chur ch or christian services? Never 03/31/2023 Do you belong to any clubs o r organizations such as yazidi groups, unions, fraternal or athletic groups, or [...] place to sleep or slept in a jail (including now)? No 03/31/2023 Personal Safety Answer Date Recorded Have you ever been in or are you currently in a harmful physical or emotional relationship or is someone making you feel afraid or unsafe? Denies 03/29/2023 Sex and Gender Information Value Date Recorded Sex Assigned at Not on file Legal Sex Male 12:37 PM SERVICES HOST Gender Identity Male 08/08/2020 7:20 PM CDT Sexual Orientation Straight 08/08/2020 7: 20 PM CDT Obstetrics History Last Filed Vital Signs Vital Sign Reading Time Taken Comments Blood Pressure 119/67 04/03/2023 4:10 PM SERVICES HOST Pulse 66 04/03/2023 4:10 PM SERVICES HOST Temperature 37 C (98.6 F) 04/03/2023 4:10 PM SERVICES HOST Respiratory Rate 18 04/03/2023 4:10 PM SERVICES HOST Oxygen Saturation 97% 04/03/2023 4:10 PM SERVICES HOST Inhaled Oxygen Concentration - - Weight 107 kg (235 lb 14.3 oz) 04/02/2023 7:38 A M SERVICES HOST Height 185.4 cm (6' 1 ) 04/02/2023 7:38 AM SERVICES HOST Body Mass Index 31.12 04/02/2023 7:38 AM SERVICES HOST Plan of Treatment Health Maintenance Due Date [...] , 10/21/2017 Medical Devices Implanted Type Area Patient Intake Coordinator Device Identifier Shelf Expiration Date Model / Serial / Lot Depuy Orth[employer] [id number] Attune 7mm Cruciate Retaining Rotate Platform Knee 8 Insert - [id number] Implanted:Qty: 1 on 09/12/2020 by Luther Winston MD at [facility] Left: Knee [employer] [id number] 02/25/2025 [id number] / / [id number] [employer] [id number] Attune Cementless Rotate Platform Knee 9 Baseplate Tibial - [id number] Implanted:Qty: 1 on 09/12/2020 by Luther Winston MD at [facility] Left: Knee [employer] [id number] 06/25/2030 [id number] / / [id number] [employer] [id number] Attune Cruciate Retain Cementless Knee Left 8 Component Femoral - [id number] Implanted:Qty: 1 on 09/12/2020 by Luther Winston MD at [facility] Left: Knee [employer] [id number] 03/27/2030 [id number] / / [id number] Procedures Procedure Name Priority Date/Time Associated Diagnosis Comments CT ABDOMEN PELVIS W CONTRAST ED 03/29/2023 8:49 PM SERVICES HOST from Last 3 Months or Most Recently Relevant to Health Maintenance Results * CT Abdomen Pelvis W Contrast (03/29/2023 8:49 PM SERVICES HOST) Anatomical Region Laterality Modality Body N/A Computed Tomogra phy 03/29/2023 8:54 PM SERVICES HOST Narrative 03/29/2023 9:32 PM SERVICES HOST EXAM DESCRIPTION: CT ABDOMEN PELVIS W CONTRAST [...] Mau Kellogg M.D. KT: KT Report ID: [id number] Reading Location: [place] [address] Procedure Note Mau Kellogg MD - 03/29/2023 [...] Mau Kellogg M.D. KT: CHARISSA Report ID: [id number] Reading Location: [place] [address] Ziggy Scott DO IMG CT PROCEDURES Final Result from Last 3 Months or Most Recently Relevant to Health Maintenance Insurance [facility] CLAIMS [facility] CHOICE PLUS MEDICARE [facility] CHOICE PLUS [place] [id number] MEDICARE FOR LIFE [facility] CHOICE PLUS MEDICARE [facility] Advance Directives For more information, please contact: [phone] Documents on File Type Date Recorded Patient Customer Engagement Representative Expl anation Advance Directives and Livin g Will 07/08/2021 9:06 AM * Full Code (Latest Code Status on File) Date Activated Date Inactivated Comments 03/29/2023 11:20 PM 04/03/2023 9:18 PM * Full Code Date Activated Date Inactivated Comments 06/20/2021 1:45 PM 06/21/2021 7:23 PM * Full Code Date Activated Date Inactivated Comments 09/12/2020 9:35 AM 09/12/2020 5:46 PM Care Teams Manager Regional Sales Relationship Specialty Start Date End Date Enrrique Laura MD [address] [facility] [address] [place] [address] PCP - General 12/24/17 [place] [address] [address] [facility] [address] [place] [address] Consulting Physician General Surgery 06/21/21 Rebecca Templeton MD [address] [facility] [address] [place] [address] Consulting Physician General Surgery 04/03/23
--- OUTSIDE RECORDS SUMMARY | 2024-08-04 08:21 | XMS_ITS | Encounter Summary ---
Author Organization [facility] Address [address] [place] [address] Care Team Providers Care Manganese Heater Name Role Phone Enrrique Laura MD Primary Care Provider Arturo Lutz MD Unavailable [phone] Rebecca Templeton MD Unavailable Encounter Details Date Type Department Care Team (Late st Contact Info) Description 04/25/2021 Telephone [facility] Radiology [address] [place] [address] [place] [address] [place] [address] Social History Tobacco Use Types Packs/Day Years [...] on file Legal Sex Male 12:37 PM FINANCIAL ASSISTANCE SPECIALIST Gender Identity Male 08/08/2020 7:20 PM CDT Sexual Orientation Straight 08/08/2020 7: 20 PM CDT documented as of this encounter Plan of Treatment Not on file documented as of this encounter Visit Diagnoses Not on filedocumented in this encounter Care Teams Manganese Heater Relationship Specialty Start Date End Date Enrrique Laura MD [address] [place] [address] PCP - General 12/24/17 [place] [address] [facility] [address] [place] [address] Consulting Physician General Surgery 06/21/21 Rebecca Templeton MD [address] [place] [address] Consulting Physician General Surgery 04/03/23 documented as of this encounter
--- OUTSIDE RECORDS SUMMARY | 2024-08-04 08:21 | XMS_ITS | Referral Summary ---
Author Organization [facility] Address [address] [place] [address] Care Team Providers Care Entry Level Project Coordinator Name Role Phone Enrrique Laura MD Primary Care Provider Arturo Lutz MD Unavailable [phone] Rebecca Templeton MD Unavailable Allergies No known [...] 03/29/2023 Assessment & Plan (03/29/2023 10:40 PM VENDOR REPRESENTATIVES): Recurrent history of diverticulitis of 5 years' [...] 03/29/2023 Assessment & Plan (03/29/2023 10:41 PM VENDOR REPRESENTATIVES): Likely prerenal Current creatinine of 1.3, less than 1 at baseline Avoid nephrotoxins Renally dose medications Monitor for renal toxicity in the setting of IV antibiotics. History of prostate cancer 05/10/2021 Overview (05/10/2021): Added automatically from request for surgery [id number] Assessment & Plan (03/29/2023 10:37 PM VENDOR REPRESENTATIVES): Status post surgery and radiation Currently remission Supportive care Orthopedic aftercare 10/12/2020 HLD (hyperlipidemia) 09/11/2020 Assessment & Plan (03/29/2023 10:37 PM VENDOR REPRESENTATIVES): Chronic and stable Continue home regimen of atorvastatin. Vitamin D deficiency 09/11/2020 Primary osteoarthritis of left knee 08/17/2020 Overview (08/17/2020): Added automatically from request for surgery [id number] Osteoarthritis of knee 12/04/2011 Knee pain 11/12/2011 [...] pur e alcohol) 1-2 beers a day [facility] Utilities Answer Date Recorded In the past 12 months has [employer], gas, oil, or water [employer] threatened to shut off services in your [...] often do you attend chur ch or roman catholic services? Never 03/31/2023 Do you belong to any clubs o r organizations such as yarsanism groups, unions, fraternal or athletic groups, or [...] place to sleep or slept in a fci (including now)? No 03/31/2023 Personal Safety Answer Date Recorded Have you ever been in or are you currently in a harmful physical or emotional relationship or is someone making you feel afraid or unsafe? Denies 03/29/2023 Sex and Gender Information Value Date Recorded Sex Assigned at Not on file Legal Sex Male 12:37 PM VENDOR REPRESENTATIVES Gender Identity Male 08/08/2020 7:20 PM CDT Sexual Orientation Straight 08/08/2020 7: 20 PM CDT Last Filed Vital Signs Vital Sign Reading Time Taken Comments Blood Pressure 119/67 04/03/2023 4:10 PM VENDOR REPRESENTATIVES Pulse 66 04/03/2023 4:10 PM VENDOR REPRESENTATIVES Temperature 37 C (98.6 F) 04/03/2023 4:10 PM VENDOR REPRESENTATIVES Respiratory Rate 18 04/03/2023 4:10 PM VENDOR REPRESENTATIVES Oxygen Saturation 97% 04/03/2023 4:10 PM VENDOR REPRESENTATIVES Inhaled Oxygen Concentration - - Weight 107 kg (235 lb 14.3 oz) 04/02/2023 7:38 A M VENDOR REPRESENTATIVES Height 185.4 cm (6' 1 ) 04/02/2023 7:38 AM VENDOR REPRESENTATIVES Body Mass Index 31.12 04/02/2023 7:38 AM VENDOR REPRESENTATIVES Plan of Treatment Not on file Medical Devices Implanted Type Area Stock Parts Fabricator Device Identifier Shelf Expiration Date Model / Serial / Lot Depuy Orthopa[employer] Inc [id number] Attune 7mm Cruciate Retaining Rotate Platform Knee 8 Insert - [id number] Implanted:Qty: 1 on 09/12/2020 by Luther Winston MD at [facility] Left: Knee [employer] [id number] 02/25/2025 [id number] / / [id number] [employer] [id number] Attune Cementless Rotate Platform Knee 9 Baseplate Tibial - [id number] Implanted:Qty: 1 on 09/12/2020 by Luther Winston MD at [facility] Left: Knee [employer] [id number] 06/25/2030 [id number] / / [id number] [employer] [id number] Attune Cruciate Retain Cementless Knee Left 8 Component Femoral - [id number] Implanted:Qty: 1 on 09/12/2020 by Luther Winston MD at [facility] Left: Knee [employer] [id number] 03/27/2030 [id number] / / [id number] Procedures Procedure Name Priority Date/Time Associated Diagnosis Comments CT ABDOMEN PELVIS W CONTRAST ED 03/29/2023 8:49 PM VENDOR REPRESENTATIVES from Last 3 Months or Most Recently Relevant to Health Maintenance Results * CT Abdomen Pelvis W Contrast (03/29/2023 8:49 PM VENDOR REPRESENTATIVES) Anatomical Region Laterality Modality Body N/A Computed Tomogra phy 03/29/2023 8:54 PM VENDOR REPRESENTATIVES Narrative 03/29/2023 9:32 PM VENDOR REPRESENTATIVES EXAM DESCRIPTION: CT ABDOMEN PELVIS W CONTRAST [...] 9:32 PM - Electronically signed by Mau Kelolgg M.D. KT: CHARISSA Report ID: [id number] Reading Location: [id number] Procedure Note Mau Kellogg MD - 03/29/2023 [...] Mau Kellogg M.D. KT: KT Report ID: [id number] Reading Location: [place] [address] Ziggy Scott DO IMG CT PROCEDURES Final Result from Last 3 Months or Most Recently Relevant to Health Maintenance Insurance [facility]S [facility] Address: [facility] [address] [place] [address] [facility] CHOICE PLUS MEDICARE [facility] CHOICE PLUS MEDICARE FOR LIFE [facility] CHOICE PLUS MEDICARE FOR LIFE Advance Directives For more information, please contact: [phone] Documents on File Type Date Recorded Patient Payer Specialist Expl anation Advance Directives and Livin g Will 07/08/2021 9:06 AM * Full Code (Latest Code Status on File) Date Activated Date Inactivated Comments 03/29/2023 11:20 PM 04/03/2023 9:18 PM * Full Code Date Activated Date Inactivated Comments 06/20/2021 1:45 PM 06/21/2021 7:23 PM * Full Code Date Activated Date Inactivated Comments 09/12/2020 9:35 AM 09/12/2020 5:46 PM Care Teams Entry Level Project Coordinator Relationship Specialty Start Date End Date Enrrique Laura MD [address] [place] [address] PCP - General 12/24/17 [place] [address] [address] Consulting Physician General Surgery 06/21/21 Rebecca Templeton MD [address] [place] [address] Consulting Physician General Surgery 04/03/23
[2024-08-23 12:22] VITALS: BMI 32.3
--- NOTE | 2024-08-23 12:22 | P.SLEEP_ITS ---
Sleep Study - Home Unattended Date of Study: 08/04/24 Ordering Provider: HANS Up Interpreting Provider: Toya Brewer, DO Home Sleep Study Type: Watch PAT Height: 1.85 m Weight: 111.13 kg Body Mass Index: 32.3 Neck Circumference (inches): 16.5 Schertz: 14 Reason for Sleep Study Insomnia Sleep History The patient is a 68-year-old male that had a sleep study ordered by the pulmonary group for evaluation of sleep apnea. The patient occasionally awakens from sleep short of breath. He frequently awakens at night with coughing. He frequently snores. He frequently has trouble sleeping when he has a cold. He rarely wakes up gasping for air throughout the night. He occasionally has breathing problems at night observed by himself or others. He denies sweating excessively at night. He denies having heart palpitations or irregular heartbeats during the night. He frequently falls asleep during the day but rarely while driving. He denies sleep paralysis and cataplexy. He rarely has trouble at school or work due to sleepiness. He occasionally experiences vivid dreamlike scenes upon awakening or falling asleep. He denies feeling afraid of going to sleep. He frequently has nightmares. He occasionally remembers his dreams. He frequently has thoughts racing through his mind. He rarely feels sad or depressed. He occasionally has anxiety. He rarely has muscular tension. He occasionally notices parts of his body jerk. He frequently kicks during the night. He frequently has crawling and aching feelings in his legs and occasionally has leg pain during the night. He constantly grinds his teeth during sleep and constantly awakens with morning jaw pain. He is frequently bothered by pain during the day and constantly awakened by pain during the n ight. He rarely wakes up feeling stiff in the morning. He denies waking up with sore or achy muscles. He rarely wakes up with pain in the neck, spine and other joints. He goes to bed at 10:30 p.m. on both weekdays and weekends. He is typically able to fall asleep within 40 minutes after taking his hypnotic. He wakes up 7 times throughout the night to urinate or to adjust his position. He is able fall back asleep within a short period of time. He wakes up at 6:00 a.m. on weekdays and at 6:10 a.m. on the weekends. He typically gets 5.5 hours of sleep per night. He does not stay in bed after waking up in the morning. He currently lives with his and her parents. He denies consuming any caffeinated beverages within 2 hours of bedtime. He denies engaging in physical exercise before bedtime. He will watch television before falling asleep. He will take naps in afternoon or the evening and they are refreshing. He consumes half a pot of coffee every morning. He consumes 2-3 beers per day. He denies tobacco and recreational drug use. COUNT INCLUDES THE [facility] Past Medical History Medical History Sigmoid diverticulitis Surgical History Surgical History Status post left knee replacement S/P prostatectomy Family History Family History Mother Family history of diabetes mellitus in first degree relative Father Family history of lymphoma Other Diabetes mellitus Social History Social History Smoking status: Never smoker Second hand tobacco smoke exposure: No Alcohol intake: current Drinks per week: 5 Substance use: never Substance use type: does not use Lack of Transportation: No Lack of Food: Never True Current Housing: I Have Housing Concerned About Future Housing: No Difficulty Paying Gas/Electric Bills: No Difficulty Paying for Meds: No Currently Unemployed: No Education: Don't Know Difficulty w/ Childcare or Family Care: No Living arrangements: with family Occupation/Education: occupation Gender identity (if verbalized by the patient): Male Sexual Orientation (if Verbalized by the Patient): Straight or Heterosexual Spiritual care concerns: No Medications Home Medications ?Medication ?Instructions ?Recorded ?Confirmed ?Type albuterol sulfate 90 mcg/actuation See Rx Instructions .Route 09/14/23 07/07/24 Rx aerosol inhaler .COMPLEX #8.5 ea diclofenac sodium 50 mg See Rx Instructions .Route 12/15/23 07/07/24 Rx tablet,delayed release .COMPLEX #60 tabs atorvastatin 40 mg tablet 40 mg PO DAILY #90 tabs 03/16/24 07/07/24 Rx zolpidem 10 mg tablet 10 mg PO .qhs insomnia #90 tabs 07/27/24 Rx budesonide 160 mcg-glycopyr 9 2 inh inhalation BID #10.7 grams 08/06/24 Rx mcg-formot 4.8 mcg/actuation HFA inhaler (Breztri Aerosphere) Sleep Procedure The sleep study was completed using [employer] a technically adequate device with seven channels: peripheral arterial tone, actigraphy, body position, snore, respiratory movement, pulse oximetry, sleep staging, and heart rate. Prior to using the device, the patient received verbal and written instructions for its application and was provided with the help desk phone number for additional telephonic instruction with 24-hour availability of qualified personnel to answer questions. The study was scored using CMS guidelines. Sleep Architecture The total recording time is 7 hrs, 11 min. The total sleep time is 6 hrs, 33 min. Sleep latency is 17 minutes. REM latency is 37 minutes. The patient had 3 episodes of waking. Sleep architecture shows 9.0% deep sleep, 51.6% light sleep, and (as % Total Sleep Time) showed NREM (Light 51.6%; Deep 9.0%), and a 39.3% stage REM. The patient spent 25.2% of total sleep time in the supine position. Sleep efficiency was 91.18. Respiratory Analysis The overall AHI (pAHI 4%:) is 5.7. The overall AHI (pAHI 3%:) is 15.7. The central AHI is 2.6. The AHI was 8.6 in NREM and 26.7 in REM sleep. The AHI was 15.9 in Supine and 15.6 in Non-supine sleep. Percent of Sam Maxwell respirations is 0.0. Oximetry Data The oxygen desaturation index (LAMONT 4%:) is 5.7. The mean saturation is 93%, and the lowest saturation is 84%. Time spent with saturation < 88% is 0.1 minutes. Snoring Profile Snoring average intensity is 42 dB. The patient snored above 45 decibels for 44.4 minutes, 11.3% of sleep time. Cardiac Profile The average pulse rate is 57 beats per minutes. The lowest pulse rate is 45 bpm. The highest pulse rate reported is 105 bpm. Atrial fibrillation was not detected. Premature beats occur <0.1 per minute. Assessment and Plan Assessment and Plan (1) CT (obstructive sleep apnea): Code(s): G47.33 - Obstructive sleep apnea (adult) (pediatric) Status: Acute Assessment and Plan: The patient had an overall AHI of 5.7 with desaturation down to 84%. This is consistent with mild sleep apnea. Due to the patient's insomnia, he qualifies for treatment. I recommend that the patient have a CPAP titration study with th e use of a hypnotic to ensure we obtain enough sleep data and find an optimal pressure setting. A mandibular advancement device is also an acceptable treatment option. The patient's sleep history is highly suggestive of Restless Leg Syndrome. I recommend that the patient have a serum ferritin drawn for evaluation of iron deficiency anemia. If the patient has a serum ferritin less than 75 ng/mL, I recommend starting a daily iron supplement and a Vitamin C supplement for better absorption. If the serum ferritin is greater than 75 ng/mL, I recommend starting a dopamine agonist and titrating the dose until symptoms resolve. There are nonpharmacological methods to treat limb movements including daily exercise, stretching calf muscles before bed, avoiding excessive amounts of caffeine and alcohol, vitamin B supplementation, magnesium lotion massaged into legs before bed, and use of a weighted blanket. Data The data obtained during this sleep study is adequate for interpretation. Certification This sleep study has been reviewed by a board certified sleep medicine physician.
== END 2024-08-05 10:51 | disposition home or self-care (01) ==
LOC: ANHCSM 08:12
PROVIDERS: PCP Family Medicine; Visit Provider Physician Assistant
DX: G47.33 Obstructive sleep apnea (adult) (pediatric) (principal); J44.9 Chronic obstructive pulmonary disease, unspecified
CPT/HCPCS: 95800

== ENCOUNTER 2025-03-03 07:57 | Outpatient (CLI) | payer MEDICARE, OTHER, SELFPAY ==
[2025-03-03 08:58] LABS: Hematocrit 44.3 % (42.0-52.0); Hemoglobin 14.9 g/dL (14.0-18.0); Mean Corpuscular HGB Conc 33.6 g/dl (32-36); Mean Corpuscular Hemoglobin 30.8 pg (26-34); Mean Corpuscular Volume 91.7 fl (80-100); Platelet Count Result 210 k/mm3 (150-375); Red Blood Count 4.83 M/mm3 (4.6-6.20); White Blood Count 6.8 K/mm3 (4.5-10.0)
[2025-03-03 09:22] LABS: Alanine Aminotransferase 28 U/L (6-50); Albumin Level 4.4 g/dL (3.5-5.1); Alkaline Phosphatase 44 U/L (38-126); Anion Gap 6 mmol/L (4-12); Aspartate Amino Transferase 30 U/L (17-59); Bilirubin,Total 0.9 mg/dL (0.2-1.3); Blood Urea Nitrogen 24 mg/dL (9-20); Calcium 9.2 mg/dL (8.4-10.2); Carbon Dioxide 26 mmol/L (22-30); Chloride 104 mmol/L (98-107); Cholesterol 186 mg/dL (0-200); Estimated Glomerular Filt Rate > 60; Glucose 108 mg/dL (65-110); HDL Direct 44 mg/dL; Potassium 5.2 mmol/L (3.4-5.0); Sodium 136 mmol/L (137-145); Total Protein 6.9 g/dL (6.3-8.2); Triglycerides 134 mg/dL (<150)
[2025-03-03 09:58] LABS: Thyroid Stimulating Hormone 1.600 uIU/mL (0.465-4.680)
[2025-03-03 10:14] LABS: Hemoglobin A1C 5.9 % (<5.7)
--- OUTSIDE RECORDS SUMMARY | 2025-03-03 16:53 | XMS_ITS | Clinical Summary ---
Author Organization [facility] Address [address] [place] [address] Care Team Providers Care Microelectronics Engineer Name Role Phone Enrrique Laura MD Primary Care Provider Arturo Lutz MD Unavailable [phone] Rebecca Templeton MD Unavailable Allergies No known [...] 03/29/2023 Assessment & Plan (03/29/2023 10:40 PM WEDDING CAKE DESIGNER): Recurrent history of diverticulitis of 5 years' [...] 03/29/2023 Assessment & Plan (03/29/2023 10:41 PM WEDDING CAKE DESIGNER): Likely prerenal Current creatinine of 1.3, less than 1 at baseline Avoid nephrotoxins Renally dose medications Monitor for renal toxicity in the setting of IV antibiotics. History of prostate cancer 05/10/2021 Overview (05/10/2021): Added automatically from request for surgery [id number] Assessment & Plan (03/29/2023 10:37 PM WEDDING CAKE DESIGNER): Status post surgery and radiation Currently remission Supportive care Orthopedic aftercare 10/12/2020 HLD (hyperlipidemia) 09/11/2020 Assessment & Plan (03/29/2023 10:37 PM WEDDING CAKE DESIGNER): Chronic and stable Continue home regimen of atorvastatin. Vitamin D deficiency 09/11/2020 Primary osteoarthritis of left knee 08/17/2020 Overview (08/17/2020): Added automatically from request for surgery [id number] Osteoarthritis of knee 12/04/2011 Knee pain 11/12/2011 [...] pur e alcohol) 1-2 beers a day [facility] Utilities Answer Date Recorded In the past 12 months has [employer], gas, oil, or water [employer] threatened to shut off services in your home? No 03/31/2023 Social Connection and Isolation Panel Answer Date Recorded In a typical week, how many times do you talk on the phone with family, friends, or neighbors? More than three times a week 03/31/2023 How often do you get togethe r with friends or relatives? Three times a week 03/31/2023 How often do you attend chur ch or sabianism services? Never 03/31/2023 Do you belong to any clubs o r organizations such as caodaism groups, unions, fraternal or athletic groups, or [...] place to sleep or slept in a longterm (including now)? No 03/31/2023 Personal Safety Answer Date Recorded Have you ever been in or are you currently in a harmful physical or emotional relationship or is someone making you feel afraid or unsafe? Denies 03/29/2023 Sex and Gender Information Value Date Recorded Sex Assigned at Not on file Legal Sex Male 12:37 PM WEDDING CAKE DESIGNER Gender Identity Male 08/08/2020 7:20 PM CDT Sexual Orientation Straight 08/08/2020 7: 20 PM CDT Last Filed Vital Signs Vital Sign Reading Time Taken Comments Blood Pressure 119/67 04/03/2023 4:10 PM WEDDING CAKE DESIGNER Pulse 66 04/03/2023 4:10 PM WEDDING CAKE DESIGNER Temperature 37 C (98.6 F) 04/03/2023 4:10 PM WEDDING CAKE DESIGNER Respiratory Rate 18 04/03/2023 4:10 PM WEDDING CAKE DESIGNER Oxygen Saturation 97% 04/03/2023 4:10 PM WEDDING CAKE DESIGNER Inhaled Oxygen Concentration - - Weight 107 kg (235 lb 14.3 oz) 04/02/2023 7:38 A M WEDDING CAKE DESIGNER Height 185.4 cm (6' 1) 04/02/2023 7:38 AM WEDDING CAKE DESIGNER Body Mass Index 31.12 04/02/2023 7:38 AM WEDDING CAKE DESIGNER Plan of Treatment Health Maintenance Due Date Last Done Comments Colon Cancer Screening-Colonoscopy 1955 Depression Screening 1955 Hepatitis C Screening 1955 DTaP/Tdap/Td Vaccine (1 - Tdap) 1964 Hepatitis B Screening 10/01/1971 Pneumococcal vaccine 65+ (1 of 2 - PCV) 1972 Zoster Vaccine (1 of 2) 10/01/2003 Well Visit 65+ 2018 Fall Risk Assessment 04/02/2024 04/02/2023 Covid-19 Vaccine (2 - season) 2024 Influenza Vaccine (#1) 2024 12/29/2020, 2019 Abdominal Aortic Aneurysm (AAA) Screen Completed , 10/21/2017 Medical Devices Implanted Type Area Technology Intern Device Identifier Shelf Expiration Date Model / Serial / Lot [employer]uy [employer] [id number] Attune 7mm Cruciate Retaining Rotate Platform Knee 8 Insert - [id number] Implanted:Qty: 1 on 09/12/2020 by Luther Winston MD at [facility] Left: Knee [employer] [id number] 02/25/2025 [id number] / / [id number] [employer] [id number] Attune Cementless Rotate Platform Knee 9 Baseplate Tibial - [id number] Implanted:Qty: 1 on 09/12/2020 by Luther Winston MD at [facility] Left: Knee [employer] [id number] 06/25/2030 [id number] / / [id number] [employer] [id number] Attune Cruciate Retain Cementless Knee Left 8 Component Femoral - [id number] Implanted:Qty: 1 on 09/12/2020 by Luther Winston MD at [facility] Left: Knee [employer] [id number] 03/27/2030 [id number] / / [id number] Procedures Procedure Name Priority Date/Time Associated Diagnosis Comments CT ABDOMEN PELVIS W CONTRAST ED 03/29/2023 8:49 PM WEDDING CAKE DESIGNER from Last 3 Months or Most Recently Relevant to Health Maintenance Results * CT Abdomen Pelvis W Contrast (03/29/2023 8:49 PM WEDDING CAKE DESIGNER) Anatomical Region Laterality Modality Body N/A Computed Tomogra phy 03/29/2023 8:54 PM WEDDING CAKE DESIGNER Narrative 03/29/2023 9:32 PM WEDDING CAKE DESIGNER EXAM DESCRIPTION: CT ABDOMEN PELVIS W CONTRAST [...] Mau Kellogg M.D. KT: CHARISSA Report ID: [id number] Reading Location: [id number] Procedure Note Mau Kellogg MD - 03/29/2023 [...] Mau Kellogg M.D. KT: CHARISSA Report ID: [id number] Reading Location: [place] [address] Ziggy Scott DO IMG CT PROCEDURES Final Result from Last 3 Months or Most Recently Relevant to Health Maintenance Insurance [employer] [facility] [employer] FOR LIFE Advance Directives For more information, please contact: [phone] Documents on File Type Date Recorded Patient Manager Physical Expl anation Advance Directives and Livin g Will 07/08/2021 9:06 AM * Full Code (Latest Code Status on File) Date Activated Date Inactivated Comments 03/29/2023 11:20 PM 04/03/2023 9:18 PM * Full Code Date Activated Date Inactivated Comments 06/20/2021 1:45 PM 06/21/2021 7:23 PM * Full Code Date Activated Date Inactivated Comments 09/12/2020 9:35 AM 09/12/2020 5:46 PM Care Teams Microelectronics Engineer Relationship Specialty Start Date End Date Enrrique Laura MD [address] [facility] [address] [place] [address] [address] [place] [address] PCP - General 12/24/17 [place] [address] [address] [facility] [address] [place] [address] Consulting Physician General Surgery 06/21/21 Rebecca Templeton MD [address] [facility] [address] [place] [address] Consulting Physician General Surgery 04/03/23
--- OUTSIDE RECORDS SUMMARY | 2025-03-03 16:53 | XMS_ITS | Clinical Summary ---
Author Organization [facility] Address [address] [place] [address] Care Team Providers Care Carpenter Refrigerator Name Role Phone Unavailable Primary Care Provider [...] Td Vaccines ( 1 - Tdap) 1972 Pneumococcal Vaccine: 50+ Ye ars (1 of 1 - PCV) 10/01/2003 Zoster Vaccines (1 of 2) 10/01/2003 COVID-19 Vaccine ( - 2024-2 6 season) 2024 Influenza Adult (#1) 2025 RSV Immunization or 60+ Years (1 - 1-dose 75+ series) 2028 Hepatitis A Vaccines Aged Out No long er eligible based on patient's age to complete this topic Meningococcal B Vaccine Aged Out No l onger eligible based on patient's age to complete this topic Meningococcal Vaccine Aged Out No melba sridevi eligible based on patient's age to complete this topic RSV Immunizations Under 20 Months Aged Out No longer eligible based on patient's age to complete this topic
--- OUTSIDE RECORDS SUMMARY | 2025-03-03 16:53 | XMS_ITS | Encounter Summary ---
Author Organization [facility] Address [address] [place] [address] Care Team Providers Care Service Desk Technician Name Role Phone Enrrique Laura MD Primary Care Provider Arturo Lutz MD Unavailable [phone] Rebecca Templeton MD Unavailable Encounter Details Date Type Department Care Team (Late st Contact Info) Description 04/25/2021 Telephone [facility] Radiology [address] [place] [address] [place] [address] [place] [address] Social History Tobacco Use Types Packs/Day Years [...] on file Legal Sex Male 12:37 PM CUSTOMER DEVELOPMENT REPRESENTATIVE Gender Identity Male 08/08/2020 7:20 PM CDT Sexual Orientation Straight 08/08/2020 7: 20 PM CDT documented as of this encounter Plan of Treatment Not on file documented as of this encounter Visit Diagnoses Not on filedocumented in this encounter Care Teams Service Desk Technician Relationship Specialty Start Date End Date Enrrique Laura MD [address] [place] [address] PCP - General 12/24/17 [place] [address] [address] [facility] [address] [place] [address] Consulting Physician General Surgery 06/21/21 Rebecca Templeton MD [address] [place] [address] Consulting Physician General Surgery 04/03/23 documented as of this encounter
== END 2025-03-03 07:58 | disposition home or self-care (01) ==
PROVIDERS: PCP Family Medicine; Visit Provider Physician Assistant Medical
DX: E78.00 Pure hypercholesterolemia, unspecified (principal); R73.01 Impaired fasting glucose; J44.9 Chronic obstructive pulmonary disease, unspecified
CPT/HCPCS: 36415; 80053; 80061; 83036; 84443; 85027